=== PATIENT | female | born 1925 | race Caucasian/White ===

== ENCOUNTER 2016-03-30 14:21 | Emergency (ER) | payer OTHER, BC ==
[~2016-03-30] VITALS: Ht 160 cm; Wt 61.4 kg
[~2016-03-30 14:21] MED LIST: AMLODIPINE BESY10 MG PO; ASCORBIC ACID100 MG PO; CIPRO500 MG PO; DAILY VALUE1 EACH PO; IMDUR120 MG PO; METOPROLOL SUCC25 MG PO; PLAVIX75 MG PO; TYLENOL REGULA325 MG PO; VENLAFAXINE HCL75 M3 PO; VITAMIN E100 UNIT PO
[2016-03-30] MEDS ORDERED: ERYTHROMYC1 APPLICAT RIGHT EYE (16:13)
[2016-03-30 16:41] VITALS: BP 205/91
== END 2016-03-30 16:48 | disposition home or self-care (01) ==
LOC: RME 14:21 → EME 14:21 → RME 16:48
DX: T65.891A Toxic effect of other specified substances, accidental (unintentional), initial encounter (principal); H10.212 Acute toxic conjunctivitis, left eye; S05.02XA Injury of conjunctiva and corneal abrasion without foreign body, left eye, initial encounter; Z77.098 Contact with and (suspected) exposure to other hazardous, chiefly nonmedicinal, chemicals; E78.5 Hyperlipidemia, unspecified; I10 Essential (primary) hypertension; Z87.891 Personal history of nicotine dependence
CPT/HCPCS: 99281; 99284